=== PATIENT | male | born 1970 | race Caucasian/White ===

== ENCOUNTER 2019-11-25 06:40 | Day surgery (SDC) | payer BC ==
[~2019-11-25] VITALS: Ht 185.4 cm; Wt 139.9 kg
[2019-11-25] MEDS ORDERED: normal saline 1000ml 1,000 ML IV PRN (07:05)
[2019-11-25 07:30] VITALS: BP 136/79
[2019-11-25 07:42] LABS: BASOPHILS # (AUTO) 0.1 X10'3 (0-0.2); EOSINOPHILS # (AUTO) 0.1 X10'3 (0-0.9); HEMOGLOBIN 8.7 g/dl (14.0-17.9); MEAN PLATELET VOLUME 8.9 FL (7.4-10.4); MONOCYTES # (AUTO) 0.4 X10'3 (0-0.9); NEUTROPHILS # (AUTO) 1.6 X10'3 (1.8-7.7); WHITE BLOOD COUNT 2.7 X10'3 (4.5-11.0)
[2019-11-25] MEDS ORDERED: ALBU6.7H9 INH (07:42)
[2019-11-25] MEDS ORDERED: SPIR25TA5 PO (07:42)
[2019-11-25] MEDS ORDERED: NADO40TA3 PO (07:42)
[2019-11-25] MEDS ORDERED: FERR324T PO (07:42)
[2019-11-25] MEDS ORDERED: METO25TA6 PO (07:42)
[2019-11-25 07:43] LABS: BASOPHILS % (AUTO) 1.8 % (0-1); EOSINOPHILS % (AUTO) 2.2 % (0-6); HEMATOCRIT 28.4 % (42.0-52.0); LYMPHOCYTES # (AUTO) 0.7 X10'3 (1.1-4.8); LYMPHOCYTES % (AUTO) 24.1 % (21-51); MEAN CORPUSCULAR HEMOGLOBIN 23.5 PG (27.0-31.0); MEAN CORPUSCULAR HGB CONC 30.8 g/dL (33.0-36.5); MEAN CORPUSCULAR VOLUME 76.5 FL (78-98); MONOCYTES % (AUTO) 13.2 % (2-12); NEUTROPHILS % (AUTO) 58.7 % (42-75); PLATELET COUNT 89 X10'3 (140-440); RED BLOOD COUNT 3.72 X10'6 (4.70-6.10)
[2019-11-25 08:12] LABS: PLATELET ESTIMATE DECREASED
[2019-11-25 08:13] LABS: ANISOCYTOSIS 2+; HYPOCHROMASIA 1+; MICROCYTOSIS 1+
[2019-11-25] MEDS ORDERED: LIDOcaine 1%/PF 5ML 10 MG/ML VIAL ONE (08:26)
[2019-11-25] MEDS ORDERED: iohexol 300mg/ml 100ml inj. ONE (08:26)
[2019-11-25] MEDS ORDERED: fentaNYL/PF 50MCG/1 ML 2ML syringe ONE ×2 (08:26→09:11)
[2019-11-25] MEDS ORDERED: midazolam 2 mg/2 ml injection ONE ×4 (08:26→09:11)
[2019-11-25] MEDS ORDERED: heparin 1,000 UNITS/NS 500ml 500 ML ONE (08:26)
[2019-11-25 10:00] VITALS: BP 151/92
[2019-11-25 10:15] VITALS: BP 141/89
[2019-11-25 10:30] VITALS: BP 136/87
[2019-11-25 10:45] VITALS: BP 140/88
[2019-11-25 11:15] VITALS: BP 150/83
== END 2019-11-25 11:30 | disposition home or self-care (01) ==
LOC: SSTAY O 06:40
PROVIDERS: ATTEND Radiology Diagnostic Radiology
DX: K74.69 Other cirrhosis of liver (principal); K73.8 Other chronic hepatitis, not elsewhere classified; Z79.899 Other long term (current) drug therapy
CPT/HCPCS: 36415; 37200; 75889; 75970; 76937; 85025; 85610; 99152; 99153; C1769; C1894; C2625; J1644; J2250; J3010; J7030; Q9967; 85008; A6213

== ENCOUNTER 2024-12-04 12:46 | Emergency (ER) | payer BC ==
[~2024-12-04] VITALS: Ht 185.4 cm; Wt 130.0 kg
[~2024-12-04 12:46] MED LIST: ALBU6.7H14 INH; FERR324T PO; LOP25T PO; NADO40TA PO; SPIR25TA5 PO
--- NOTE | 2024-12-04 12:58 | Physician Documentation ---
History of Present Illness General Stated Complaint: IRREG HEART RATE Time Seen by MD: 12:57 History of Present Illness Initial Comments Patient is a 54-year-old male who states he started having an irregular rapid heart rate around 1:00 a.m. this morning. The patient states he has a similar episode proximally a month ago which was self-limited and resolved by itself. Patient states the symptoms of a rapid heart beat and palpitations have continued this morning and he presented to the emergency department. The patient's denying any active chest pain. Patient denies any shortness of breath. Patient denies any known cardiac issues. The patient denies any fevers chills nausea or vomiting.. The patient's symptoms are mild to moderate and persistent. Medication Reconciliation Allergies: Coded Allergies: Sulfa (Sulfonamide Antibiotics) (Verified Allergy, Unknown, 12/04/24) Scheduled Apixaban (Eliquis), 5 MG PO BID Ferrous Gluconate (Ferrous Gluconate), 1 TAB PO DAILY, (Reported) Metoprolol Tartrate* (Lopressor tablet*), 1 TAB PO DAILY, (Reported) Nadolol (Corgard), 1 TAB PO DAILY, (Reported) Spironolactone (Spironolactone), 1 TAB PO DAILY, (Reported) Scheduled PRN Albuterol Sulfate (Proventil Hfa), 1 PUFF INH PRN PRN for SOB or wheezing, (Reported) Review of Systems All Other Systems at this time: Reviewed and Negative Physical Exam Physical Exam Physical Exam VITALS: Reviewed and as above. GENERAL: Alert, no apparent distress. HEENT: Normocephalic, atraumatic, PERRL, EOMI, dry mucosa, no erythema RESPIRATORY: Lungs clear, normal breath sounds, no respiratory distress. CHEST: No accessory muscle use, no retractions CV: Tachycardic irregularly irregular, rhythm, no edema, no murmur, No: JVD GI: Soft, non-tender, bowels sounds present, no rebound, guarding, or rigidity BACK: No CVA tenderness, or swelling MUSCULOSKELETAL: No deformities, no edema SKIN: Warm and dry, no rash NEURO: Oriented x4, No motor or sensory deficit PSYCH: Normal mood and affect, no agitation Procedures Moderate Sedation : Pulmonary Assessment: Unremarkable Neurological Assessment: Unremarkable Cardiovascular Assessment: Unremarkable Other Systems: Unremarkable Medications: other (etomidate 20mg) ASA Class: I-normal healthy Mallampati Score/Visibility of: Class 1-full Staff Present: primary nurse, casting technician Monitoring: cardiac nurse specialist, NIPB, patient on oxygen via N/C, suction ready, crash cart at bedside Tolerated Procedure Well?: no Progress Results/Orders Results/Orders Orders - BARBY ZAPATA MD Chest,Single View (12/04/24 12:57) Saline Lock (12/04/24 12:57) Monitor (12/04/24 12:57) Completed Orders - BARBY ZAPATA MD Cbc/Diff (12/04/24 12:57) MG (12/04/24 12:57) Electrocardiogram (12/04/24 12:57) PBNP (12/04/24 12:57) Chest,Single View (12/04/24 12:57) BMP (12/04/24 12:57) Hs Troponin I W Calculations (12/04/24 12:57) Normal Saline 1000ml (0.9% Sodium Chlori (12/04/24 13:05) Diltiazem Iv (Cardizem Iv 5mg/Ml Inj.) (12/04/24 13:05) Man Diff (12/04/24 13:01) Potassium Cl Sr Tablet (K-Dur Tablet) (12/04/24 13:42) Etomidate Inj (Amidate Inj) (12/04/24 13:45) Procalcitonin (12/04/24 14:30) TSH (12/04/24 13:01) Hs Troponin I W Calculations (12/04/24 14:57) Vital Signs 12/04/24 12/04/24 12/04/24 12/04/24 12:56 13:02 13:07 13:12 Temp 98.4 98.4 Pulse 146 152 117 Resp 18 18 B/P (MAP) 116/88 116/88 116/88 (97) Pulse Ox 96 95 12/04/24 12/04/24 12/04/24 12/04/24 13:57 14:12 14:13 14:22 Temp 98.4 Pulse 111 114 80 78 Resp 16 26 24 14 B/P (MAP) 116/88 (97) 170/138 (149) 101/68 144/78 (100) Pulse Ox 96 98 98 97 O2 Delivery Nasal Cannula Nasal Cannula O2 Flow Rate 0 2.0 2.0 12/04/24 12/04/24 12/04/24 12/04/24 14:23 14:29 14:43 14:58 Pulse 75 70 70 74 Resp 9 10 20 11 B/P (MAP) 132/80 (97) 133/75 (94) Pulse Ox 98 97 97 97 O2 Delivery Nasal Cannula Nasal Cannula Room Air Room Air O2 Flow Rate 3.0 2.0 12/04/24 12/04/24 15:13 15:28 Pulse 72 75 Resp 9 12 B/P (MAP) 137/63 (87) 145/66 (92) Pulse Ox 97 97 O2 Delivery Room Air Room Air O2 Flow Rate 0 Laboratory Tests Test 12/04/24 13:01 12/04/24 15:09 White Blood Count 6.6 Red Blood Count 5.82 Hemoglobin 15.8 Hematocrit 46.8 Mean Corpuscular Volume 80.4 Mean Corpuscular Hemoglobin 27.2 Mean Corpuscular Hemoglobin Concent 33.8 Red Cell Distribution Width 15.2 H Platelet Count 87 L Mean Platelet Volume 8.4 Neutrophils (%) (Auto) 61.1 Lymphocytes (%) (Auto) 18.3 L Monocytes (%) (Auto) 17.7 H Eosinophils (%) (Auto) 2.1 Basophils (%) (Auto) 0.8 Neutrophils # (Auto) 4.0 Lymphocytes # (Auto) 1.2 Monocytes # (Auto) 1.2 H Eosinophils # (Auto) 0.1 Basophils # (Auto) 0.1 CBC Comment Differential Total Cells Counted 100 Neutrophils % (Manual) 55.0 Band Neutrophils % 9.0 Lymphocytes % (Manual) 18.0 L Monocytes % (Manual) 18.0 H Platelet Estimate Decreased Red Blood Cell Morphology Perf Poikilocytosis 1+ Basophilic Stippling Anisocytosis 1+ Sodium Level 139 Potassium Level 3.7 Chloride Level 106 Carbon Dioxide Level 23.6 L Anion Gap 9 Blood Urea Nitrogen 11 Creatinine 0.75 Estimated GFR/1.73 m2 > 90 BUN/Creatinine Ratio 14.7 Glucose Level 145 H Calcium Level 9.0 Magnesium Level 2.1 Troponin I High Sensitivity 20 17 Pro-B-Type Natriuretic Peptide 1026 H Albumin 3.8 Procalcitonin < 0.05 Thyroid Stimulating Hormone (TSH) 3.24 Chemistry Comments Troponin I High Sens Percent Delta 15 Troponin I Hi Sens Absolute Change -3 EKG/XRAY/CT/US/VASC/MRI Chest X-Ray : Additional Comments Patient: BREA LE Medical Record: [id number] [facility] : 1970, Age: 54 Sex: Male Location: ER Patient Status: REG ER Service Date/Time: 12/04/241256 Ordering Physician: BARBY ZAPATA MD Exam: CHEST,SINGLE VIEW CHEST RADIOGRAPH Indication: CP Technique: Single frontal view of the chest was obtained COMPARISON: None FINDINGS: Lines and Tubes: None Lungs: Clear Pleura: No effusion. No pneumothorax. Cardiomediastinal contours: Unremarkable Bones: Unremarkable IMPRESSION: 1. No acute disease. Electronically Signed by:VY GONZALEZ MD Date & Time: 12/04/241315 Dictated by: VY GONZALEZ MD Dictation date and time: 12/04/241315 Primary Care Provider: NO PRIMARY CARE PROVIDER cc: BARBY ZAPATA MD ~ Medical Decision Making Findings The patient's 12 lead EKG demonstrates an atrial fibrillation with a rapid ventricular rate of 144 with a normal axis the patient has nonspecific ST abnormalities the patient's EKG was interpreted by me at 12:53 p.m. p.m. as abnormal. The patient's cardiac nurse specialist was interpreted as atrial fibrillation at a rapid rate. The patient's pulse oximetry was interpreted by me as normal and adequate. The patient was given a dose of Cardizem and he had some reduction in his rapid rate. The patient was then consented for electrocardioversion. The patient was cardioverted with 200 joules of synchronous cardioversion. The patietn will be discharged on eliquis for 14 days and has been advised to follow up with cardiology as soon as possibel Procedural Sedation: Pre-assessment performed. See preceding complete history and physical for details. Time out performed. Technology Education Instructor, Continuous Pulse Ox. See sedation documentation for details. Medication(s): etomidate Complications: No hypoxic or apneic events Recovered without incident. Greater than 15 minutes of face to face time included in sedation and recovery. Cardioversion: Pre-assessment performed. See preceding complete history and physical for details. Time out performed. Technology Education Instructor, Continuous Pulse Ox. See sedation documentation for details. Technique: Biphasic Synchronized Cardioversion 200J: Converted Complications: No hypotensive events Critical Care: Time: 35 minutes Treatments/Evaluations: Close monitoring for dangerous arrhythmia and cardiovascular collapse, while treating with advance cardiac medications and techniques. Departure Time of Disposition: 15:12 Disposition: 01 HOME / SELF CARE / HOMELESS Impression: Primary Impression: Atrial fibrillation with rapid ventricular response Additional Impression: Thrombocytopenia Discharge Instructions: Atrial Fibrillation, [id number] Additional Instructions: Take the Eliquis for two weeks, return for worsening of your symptoms. Follow up with Dr. Junior as soon as you can. Referrals: NO PRIMARY CARE PROVIDER (PCP) Prescriptions Apixaban (ELIQUIS) 5 Mg Tablet 5 MG PO BID, #28 TAB Prov: BARBY ZAPATA MD 12/04/24 Critical Care Note Total Time (mins): 35 Critical Care Note The very real possibility of a deterioration of this patient's condition required the highest level of my preparedness for sudden, emergent intervention. I provided critical care services, which included medication orders, frequent reevaluations of the patient's condition and response to treatment, ordering and reviewing test results, and discussing the case with various consultants. Excludes time spent performing separately billable procedures. The critical care time associated with the care of the patient was 35 minutes. Signature Scribe Signature: no scribe Attestation: The note accurately reflects work and decisions made by me.Barby Zapata MD 12/06/24 10:19 BARBY ZAPATA MD Dec 04, 2024 12:58
[2024-12-04] MEDS: normal saline 1000ML IV soln IVB ONE (13:07)
[2024-12-04] MEDS: diltiazem 5mg/ml 5ml inj. IV ONE (13:07)
[2024-12-04 13:12] LABS: MEAN PLATELET VOLUME 8.4 FL (7.4-10.4); RED CELL DISTRIBUTION WIDTH 15.2 % (11.5-14.5)
--- NOTE | 2024-12-04 13:18 | RADIOLOGY REPORT ---
CHEST RADIOGRAPH Indication: CP Technique: Single frontal view of the chest was obtained COMPARISON: None FINDINGS: Lines and Tubes: None Lungs: Clear Pleura: No effusion. No pneumothorax. Cardiomediastinal contours: Unremarkable Bones: Unremarkable IMPRESSION: 1. No acute disease.
[2024-12-04 13:34] LABS: CREATININE 0.75 MG/DL (0.60-1.10); TOTAL CARBON DIOXIDE 23.6 MMOL/L (24-32); eCRCL 129 ML/MIN; eGFR > 90 ML/MIN
[2024-12-04 13:39] LABS: PRO BRAIN NATRIURETIC PEPTIDE 1026 PG/ML (0-125)
[2024-12-04 13:47] LABS: BANDS% (MANUAL) 9.0 % (0-10); LYMPHOCYTES % (MANUAL) 18.0 % (21-51); MONOCYTES % (MANUAL) 18.0 % (2-12); NEUTROPHILS % (MANUAL) 55.0 % (42-75); PLATELET ESTIMATE DECREASED
[2024-12-04] MEDS: potassium Cl 20 mEq SR tablet PO STA (13:55)
[2024-12-04 13:57] VITALS: TEMP 98.4
--- NOTE | 2024-12-04 14:17 | ELECTROCARDIOGRAPH REPORT ---
[facility] Test Date: 2024-12-04 Test Time: 12:49:55 Pat Name: BREA LE Department: EMERGENCY ROOM Room: Gender: M Butcher'S Assistant: PM : 1970 Requested By: BARBY MCCOY Order Number: [id number] Reading MD: Measurements Intervals [place] Rate: 144 P: 0 VA: 0 QRS: 16 QRSD: 78 T: 18 QT: 293 QTc: 454 Interpretive Statements Atrial fibrillation Ventricular premature complex Nonspecific repol abnormality, inferior leads Please click the below link to view image of tracing.
[2024-12-04] MEDS: etomidate 2mg/ml inj. IV ONE (14:32)
[2024-12-04] MEDS ORDERED: APIX5TAB3 PO (15:10)
[2024-12-04 15:28] VITALS: BP 145/66; PULSE 75; RESP 12; O2SAT 97
== END 2024-12-04 15:42 | disposition home or self-care (01) ==
LOC: ER 12:47
DX: I48.20 Chronic atrial fibrillation, unspecified (principal); D69.6 Thrombocytopenia, unspecified; R06.02 Shortness of breath; Z88.2 Allergy status to sulfonamides
CPT/HCPCS: 36415; 71045; 80048; 83735; 83880; 84145; 84443; 84484; 85025; 93005; 96361; 96374; 99285; J3490; J7030; 85007; 94760; A4620

== ENCOUNTER 2024-12-13 12:41 | Emergency (ER) | payer BC ==
[~2024-12-13] VITALS: Ht 188 cm; Wt 128.2 kg
[~2024-12-13 12:41] MED LIST changes: +APIX5TAB3 PO
--- NOTE | 2024-12-13 12:52 | Physician Documentation ---
History of Present Illness General Chief Complaint: Rapid Heartbeat Stated Complaint: AFIB Time Seen by MD: 12:52 OK to notify your PCP?: No Source: patient, RN notes reviewed, old records Mode of Arrival: POV Exam Limitations: no limitations History of Present Illness Initial Comments 54-year-old male, with a recent history of atrial fibrillation with RVR, returns to the ED complaining of rapid heart rate that began around 0800 this morning. Patient reports his watch stated he was in atrial fibrillation again. He attempted some at home vagal maneuvers without success. He denies any chest pain or shortness of breath. Patient was seen by myself nine days ago for similar symptoms and was found to be in atrial fibrillation with RVR. Patient was given Cardizem with rate reduction and then electrically cardioverted with 200 joules into normal sinus rhythm. Patient was discharged with prescription for Eliquis. Patient reports he had some initial issue getting Eliquis, but has had several doses in the last couple of days, and has more tablets home. He has since followed up with Dr. Junior, [employer], who ordered a stress test and echocardiogram but these have not been performed. Medication Reconciliation Allergies: Coded Allergies: Sulfa (Sulfonamide Antibiotics) (Verified Allergy, Unknown, 12/04/24) Scheduled Amiodarone Hcl (Cordarone), 1 TAB PO DAILY Apixaban (Eliquis), 5 MG PO BID Ferrous Gluconate (Ferrous Gluconate), 1 TAB PO DAILY, (Reported) Metoprolol Tartrate* (Lopressor tablet*), 1 TAB PO DAILY, (Reported) Nadolol (Corgard), 1 TAB PO DAILY, (Reported) Spironolactone (Spironolactone), 1 TAB PO DAILY, (Reported) Scheduled PRN Albuterol Sulfate (Proventil Hfa), 1 PUFF INH PRN PRN for SOB or wheezing, (Reported) Past Medical History Past Medical History: *CARDIOVASCULAR*, Atrial Fibrillation Past Surgical History: noncontributory Drug Use: none Lives In: Home Review of Systems All Other Systems at this time: Reviewed and Negative ROS As stated above in the HPI, otherwise all systems are reviewed and negative. Physical Exam Physical Exam Vital Signs: RN Vital Signs have been reviewed: Yes, Temperature: 97.3, Source: Oral, Heart Rate: 140, Respiratory Rate: 13, BP: 132/85, Pulse Oximetry: 99, Weight: 128.200 Oxygen Flow Rate: 0 Pulse Oximetry Reflects: adequate oxygenation Physical Exam VITALS: Reviewed and as above. GENERAL: Alert, no apparent distress. HEENT: Normocephalic, atraumatic, PERRL, EOMI, dry mucosa RESPIRATORY: Lungs clear, normal breath sounds, no respiratory distress. CHEST: No accessory muscle use, no retractions CV: Tachycardic, irregularly irregular rhythm, no edema, no murmur, No: JVD GI: Soft, non-tender, bowels sounds present, no rebound, guarding, or rigidity MUSCULOSKELETAL No deformities, no edema SKIN: Warm and dry, no rash NEURO: Oriented x4, No motor or sensory deficit PSYCH: Normal mood and affect, no agitation Procedures Cardioversion Cardioversion : Medications: Other (20mg etomidate) Joules: 200 Resulting Rhythm: NSR Tolerated Procedure Well?: yes, no complications Progress Progress Note 1315: Case discussed with MALTED MILK SUPERVISOR Prieto, cardiology, who agrees with plan of care. Results/Orders Reviewed/noted all lab results: Yes Results/Orders Orders - BARBY ZAPATA MD Chest,Single View (12/13/24 12:47) Monitor (12/13/24 12:47) Saline Lock (12/13/24 12:47) Oxygen (12/13/24 12:47) Completed Orders - BARBY ZAPATA MD Chest,Single View (12/13/24 12:47) Cbc/Diff (12/13/24 12:47) BMP (12/13/24 12:47) PBNP (12/13/24 12:47) Electrocardiogram (12/13/24 12:47) Hs Troponin I W Calculations (12/13/24 15:47) Diltiazem Iv (Cardizem Iv 5mg/Ml Inj.) (12/13/24 13:15) Amiodarone 150mg/Dext, Iso-Os (Nexterone (12/13/24 13:20) Add On Test (12/13/24 13:38) Etomidate Inj (Amidate Inj) (12/13/24 13:50) Hgb A1c (12/13/24 12:48) Ondansetron Inj. (Zofran 4mg/2ml Vial) (12/13/24 14:15) Vital Signs 12/13/24 12/13/24 12/13/24 12/13/24 12:43 13:09 13:11 13:16 Temp 97.3 98.9 Pulse 140 169 164 Resp 13 18 12 B/P (MAP) 132/85 133/93 (106) 133/93 Pulse Ox 99 94 O2 Flow Rate 0 0 12/13/24 12/13/24 12/13/24 12/13/24 13:30 13:57 14:02 14:05 Temp 98.9 Pulse 116 67 71 68 Resp 13 37 28 12 B/P (MAP) 134/82 (99) 152/103 (119) 144/73 (96) Pulse Ox 94 94 94 96 O2 Delivery Nasal Cannula Nasal Cannula Nasal Cannula O2 Flow Rate 0 5.0 5.0 3.0 12/13/24 12/13/24 12/13/24 12/13/24 14:05 14:06 14:09 14:18 Temp 98.9 Pulse 70 68 70 Resp 18 12 16 B/P (MAP) 126/76 (93) 119/65 (83) Pulse Ox 97 96 95 94 O2 Delivery Nasal Cannula Nasal Cannula* Nasal Cannula O2 Flow Rate 3.0 3 3.0 3.0 FiO2 N/A 12/13/24 12/13/24 12/13/24 14:20 14:22 14:59 Temp 98.9 98.9 Pulse 66 66 64 Resp 16 16 14 B/P (MAP) 115/68 (84) 115/68 (84) 104/64 Pulse Ox 95 95 94 O2 Delivery Nasal Cannula O2 Flow Rate 0 0 Laboratory Tests Test 12/13/24 12:48 White Blood Count 6.6 Red Blood Count 6.25 H Hemoglobin 16.9 Hematocrit 50.3 Mean Corpuscular Volume 80.6 Mean Corpuscular Hemoglobin 27.0 Mean Corpuscular Hemoglobin Concent 33.5 Red Cell Distribution Width 14.9 H Platelet Count 139 L Mean Platelet Volume 8.3 Neutrophils (%) (Auto) 69.2 Lymphocytes (%) (Auto) 19.6 L Monocytes (%) (Auto) 9.0 Eosinophils (%) (Auto) 1.9 Basophils (%) (Auto) 0.3 Neutrophils # (Auto) 4.6 Lymphocytes # (Auto) 1.3 Monocytes # (Auto) 0.6 Eosinophils # (Auto) 0.1 Basophils # (Auto) 0.0 CBC Comment Sodium Level 140 Potassium Level 4.2 Chloride Level 105 Carbon Dioxide Level 26.7 Anion Gap 8 Blood Urea Nitrogen 10 Creatinine 0.80 Estimated GFR/1.73 m2 > 90 BUN/Creatinine Ratio 12.5 Glucose Level 163 H Hemoglobin A1c 6.4 H Calcium Level 8.8 Troponin I High Sensitivity 18 Pro-B-Type Natriuretic Peptide 212 H Albumin 3.9 Chemistry Comments EKG/XRAY/CT/US/VASC/MRI EKG : Additional Comment 1247: EKG interpreted by myself to show atrial fibrillation with RVR at a rate of 167bpm. Minimal ST depression in I, II, and V3-V5. No reciprocal changes. No STEMI. Chest X-Ray : Additional Comments DI CHEST,SINGLE VIEW, HISTORY: CP COMPARISON: DI CHEST,SINGLE VIEW on DOS: 12/04/24 DI CHEST,SINGLE VIEW on DOS: 12/04/24 TECHNICAL DATA: 1 view of the chest was obtained. FINDINGS: Lines and tubes: None Cardiomediastinal silhouette: normal Pulmonary vasculature: prominent Lung expansion: normal Lung airspace: normal Lung interstitium: normal Pleura: normal Pneumothorax: no Bones: Unremarkable Other: no IMPRESSION: No acute intrathoracic abnormality. Reviewed by myself. Medical Decision Making Additional information obtaine: old records (seen by myself for similar 9 days ago and electrically cardioverted) Findings 1247: EKG interpreted by myself to show atrial fibrillation with RVR at a rate of 167bpm. Minimal ST depression in I, II, and V3-V5. No reciprocal changes. No STEMI. 1 view chest x-ray interpreted by myself to show no infiltrates, no pneumothorax, normal cardiac silhouette, normal bones. Patient is a 54-year-old male with a history of AFib in the past who was shocked on the 04 of December and he had recurrence today of his atrial fibrillation, the case was discussed with the cardiology nurse practitioner who advised starting the patient on amiodarone the patient was then cardioverted sharpe ccessfully in the emergency department two and a sinus rhythm the place was loaded on amiodarone and will be discharged on amiodarone. Previous hospitalizations were reviewed the patient is pulse oximetry was interpreted as normal and adequate in his pest controller assistant was interpreted as atrial fibrillation. Differential Diagnosis Atrial fibrillation pulmonary embolism myocardial infarction Departure Disposition: HOME / SELF CARE / HOMELESS Impression: Primary Impression: Atrial fibrillation with RVR Condition: Stable Discharge Instructions: Atrial Fibrillation, [id number] Additional Instructions: Take amiodarone as prescribed. Continue taking Eliquis as previously prescribed. Follow up with cardiology. Return to the ER for return if symptoms, or any other concerns. Prescriptions Amiodarone Hcl (Cordarone) 200 Mg Tablet 1 TAB PO DAILY for 30 Days, #42 TAB 1 by mouth twice daily for 2 weeks then once a day after that Prov: BARBY ZAPATA MD 12/13/24 Education Educated: Patient Educated regarding: diagnosis, treatment, need for follow up Critical Care Note Total Time (mins): 35 Critical Care Note The very real possibility of a deterioration of this patient's condition required the highest level of my preparedness for sudden, emergent intervention. I provided critical care services, which included medication orders, frequent reevaluations of the patient's condition and response to treatment, ordering and reviewing test results, and discussing the case with various consultants. Excludes time spent performing separately billable procedures. The critical care time associated with the care of the patient was 35 minutes. Signature Scribe Signature: Scribed for Barby Zapata MD by Gareth Renae . 12/13/24 13:10 Attestation: The note accurately reflects work and decisions made by me.Barby Zapata MD 12/15/24 14:16 BARBY ZAPATA MD Dec 13, 2024 12:52 GARETH MANJARREZ Dec 13, 2024 13:16
--- NOTE | 2024-12-13 12:53 | ELECTROCARDIOGRAPH REPORT ---
[facility] Test Date: 2024-12-13 Test Time: 12:47:31 Pat Name: BREA LE Department: EMERGENCY ROOM Room: Gender: M Plastic Surgeon: FILIPE : 1970 Requested By: BARBY MCCOY Order Number: [id number] Reading MD: Dr. Randy Borjas Measurements Intervals [place] Rate: 167 P: 0 MA: 0 QRS: 53 QRSD: 106 T: -3 QT: 239 QTc: 399 Interpretive Statements Atrial fibrillation with rapid V-rate ST depression, probably rate related Baseline wander in lead(s) V3,V4 Electronically Signed On 12-17-2024 7:42:[address] Randy Borjas Please click the below link to view image of tracing.
[2024-12-13 13:01] LABS: MEAN PLATELET VOLUME 8.3 FL (7.4-10.4); RED CELL DISTRIBUTION WIDTH 14.9 % (11.5-14.5)
[2024-12-13] MEDS: diltiazem 5mg/ml 5ml inj. IV ONE (13:16)
[2024-12-13] MEDS: amiodarone 150mg/dext, iso-os 100 ML IV ONE (13:24)
--- NOTE | 2024-12-13 13:25 | RADIOLOGY REPORT ---
DI CHEST,SINGLE VIEW, HISTORY: CP COMPARISON: DI CHEST,SINGLE VIEW on DOS: 12/04/24 DI CHEST,SINGLE VIEW on DOS: 12/04/24 TECHNICAL DATA: 1 view of the chest was obtained. FINDINGS: Lines and tubes: None Cardiomediastinal silhouette: normal Pulmonary vasculature: prominent Lung expansion: normal Lung airspace: normal Lung interstitium: normal Pleura: normal Pneumothorax: no Bones: Unremarkable Other: no IMPRESSION: No acute intrathoracic abnormality.
[2024-12-13 13:34] LABS: CREATININE 0.80 MG/DL (0.60-1.10); PRO BRAIN NATRIURETIC PEPTIDE 212 PG/ML (0-125); TOTAL CARBON DIOXIDE 26.7 MMOL/L (24-32); eCRCL 124 ML/MIN; eGFR > 90 ML/MIN
[2024-12-13] MEDS ORDERED: AMIO200T76 PO (13:52)
[2024-12-13] MEDS: etomidate 2mg/ml inj. IV ONE (13:56)
[2024-12-13] MEDS: ondansetron/PF 4mg/2ml inj IV ONE (14:16)
[2024-12-13 14:59] VITALS: BP 104/64; PULSE 64; RESP 14; TEMP 98.9; O2SAT 94
== END 2024-12-13 15:00 | disposition home or self-care (01) ==
LOC: ER 12:41
DX: I48.20 Chronic atrial fibrillation, unspecified (principal); Z79.01 Long term (current) use of anticoagulants; Z88.2 Allergy status to sulfonamides; Z79.899 Other long term (current) drug therapy
CPT/HCPCS: 36415; 71045; 80048; 83036; 83880; 84484; 85025; 92960; 93005; 96374; 96375; 99291; J0282; J2405; J3490; 94760; 99285; A4620

== ENCOUNTER 2024-12-16 02:58 | Inpatient (IN) | payer BC ==
[2024-12-16] VITALS (10 sets, daily range): BP systolic 109–137; BP diastolic 54–80; PULSE 53–68; RESP 12–18; TEMP 97.5–98.2; O2SAT 95–98
[~2024-12-16] VITALS: Ht 185.4 cm; Wt 132.0 kg
[~2024-12-16 02:58] MED LIST changes: +AMIO200T76 PO
--- NOTE | 2024-12-16 03:09 | Physician Documentation ---
History of Present Illness ~ Stated Complaint: POSS AFIB Time Seen by MD: 03:03 Primary Medical Doctor: NONE HPI Patient presents to the emergency room in atrial fibrillation. This is his 3rd time here that has month. He was started on amiodarone reports taking two doses but he woke up this morning feeling his heart pounding in knew he is in atrial fibrillation. He is on anticoagulation. He has yet to get his echo and stress test scheduled by wood flooring specialist Medication Reconciliation Allergies: Coded Allergies: Sulfa (Sulfonamide Antibiotics) (Verified Allergy, Unknown, 12/04/24) gluten (Verified Allergy, Unknown, 12/16/24) Scheduled Amiodarone Hcl (Cordarone), 1 TAB PO DAILY Apixaban (Eliquis), 5 MG PO BID Cetirizine HCl (Zyrtec), 1 TAB PO DAILY, (Reported) Cholecalciferol (Vitamin D), 4 TAB PO DAILY, (Reported) Multivitamin (Multi Vitamin Daily), 1 TAB PO DAILY, (Reported) Nadolol (Nadolol), 1 TAB PO DAILY, (Reported) Spironolactone (Spironolactone), 1 TAB PO DAILY, (Reported) Scheduled PRN Albuterol Sulfate (Proventil Hfa), 1 PUFF INH PRN PRN for SOB or wheezing, (Reported) Miscellaneous Medications Milk Thistle Seed Extract (Milk Thistle Seed Extract), (Reported) Milk Thistle Seed Extract (Milk Thistle Seed Extract), 1,000 MG, (Reported) Discontinued Medications Ferrous Gluconate (Ferrous Gluconate), 1 TAB PO DAILY, (Reported) Discontinued Reason: patient no longer taking Metoprolol Tartrate* (Lopressor tablet*), 1 TAB PO DAILY, (Reported) Discontinued Reason: patient no longer taking Nadolol (Corgard), 1 TAB PO DAILY, (Reported) Discontinued Reason: patient no longer taking Past Medical History Past Medical History: *CARDIOVASCULAR*, Atrial Fibrillation Past Surgical History: noncontributory Patient History: FH: renal cell carcinoma Drug Use: none Lives In: Home Review of Systems ROS All review of systems negative except as per HPI Physical Exam Physical Exam General: Patient is awake, alert, oriented x4 in no acute distress and well appearing.~ Head: Normocephalic and atraumatic. Eyes: Conjunctival normal. EOMI. PERRL. ENT: Mucous membranes moist. Neck: Supple, trachea is midline. Chest: Clear to auscultation bilaterally without rales, rhonchi, or wheezes. There is no accessory muscle use or retractions. Cardiac: Tachycardic and regular without murmurs, gallops, or rubs. Abd: Soft, nondistended, nontender, with normoactive bowel sounds. No guarding, rebound, or rigidity. Extremities: Normal strength. Normal range of motion. No deformities or edema. Back: No midline spinal or CVA tenderness. Skin: Warm and dry with no significant rash appreciated. Neuro: Cranial nerves II-XII grossly intact. No focal neuro deficits. Patient ambulating without difficulty. Progress Results/Orders Results/Orders Orders - DHIRAJ DODSON MD Chest,Single View (12/16/24 03:30) Monitor (12/16/24 03:11) Saline Lock (12/16/24 03:11) Oxygen (12/16/24 03:11) Cbc/Diff (12/16/24 03:11) Hs Troponin I W Calculations (12/16/24 05:11) Hs Troponin I W Calculations (12/16/24 06:11) Diltiazem-Ns 100mg/100ml (Cardizem-Ns 10 (12/16/24 03:15) Completed Orders - DHIRAJ DODOSN MD Chest,Single View (12/16/24 03:30) BMP (12/16/24 03:11) PBNP (12/16/24 03:11) Electrocardiogram (12/16/24 03:11) Hs Troponin I W Calculations (12/16/24 03:11) Diltiazem Iv (Cardizem Iv 5mg/Ml Inj.) (12/16/24 03:15) Medications Received in ER Medications (Trade) Dose Ordered Sig/Fahad Route PRN Reason Start Time Stop Time Status Last Admin Dose Admin (Cardizem IV 5mg/ ml inj.) 10 mg ONCE ONCE IV 12/16/24 03:15 12/16/24 03:31 DC 12/16/24 03:41 10 MG Diltiazem HCl 100 ml @ 5 mls/hr Q20H IV 12/16/24 03:15 12/16/24 03:41 5 MLS/HR Vital Signs 12/16/24 12/16/24 12/16/24 12/16/24 03:06 03:41 03:41 03:47 Temp 98.2 Pulse 157 130 131 Resp 16 16 B/P (MAP) 138/84 134/89 134/89 Pulse Ox 97 12/16/24 03:54 Pulse 107 Resp 18 B/P (MAP) 134/89 (104) Pulse Ox 95 O2 Flow Rate 0 Laboratory Tests Test 12/16/24 03:33 CBC Comment Sodium Level 139 Potassium Level 3.9 Chloride Level 106 Carbon Dioxide Level 23.9 L Anion Gap 9 Blood Urea Nitrogen 14 Creatinine 0.68 Estimated GFR/1.73 m2 > 90 BUN/Creatinine Ratio 20.6 H Glucose Level 196 H Calcium Level 8.9 Troponin I High Sensitivity 12 Troponin I High Sens Percent Delta 33 Troponin I Hi Sens Absolute Change -6 Pro-B-Type Natriuretic Peptide 50 Albumin 3.5 Chemistry Comments EKG/XRAY/CT/US/VASC/MRI EKG : Additional Comment EKG interpreted by myself shows time of 0305, rate 145, atrial fibrillation, normal axis, no ST changes Chest X-Ray : Additional Comments Exam: CHEST,SINGLE VIEW CHEST RADIOGRAPH Indication: CP Technique: Single frontal view of the chest was obtained COMPARISON: DI CHEST,SINGLE VIEW on DOS: 12/13/24, DI CHEST,SINGLE VIEW on DOS: 12/04/24 FINDINGS: Lines and Tubes: None Lungs: Clear Pleura: No effusion. No pneumothorax. Cardiomediastinal contours: Unremarkable Bones: Unremarkable IMPRESSION: 1. No acute disease. Medical Decision Making Additional information obtaine: old records Findings Patient presented to the emergency room with palpitations. Differentials include but are not limited to SVT, V-tach, ACS, atrial fibrillation therefore emergent labs ordered which were reassuring. Cardizem drip initiated. He continues to be in AFib RVR. Patient is declining cardioversion would prefer to be admitted as the last few weeks have not worked Differential Dx:Considerations: Include: atrial flutter Differential Dx:Considerations: Include electrolyte disorder Departure Admitted to Inpatient Unit: yes, to hospitalist Impression: Primary Impression: Atrial fibrillation with RVR Condition: Guarded Referrals: NO PRIMARY CARE PROVIDER (PCP) Signature Scribe Signature: No scribe Attestation: The note accurately reflects work and decisions made by me.Dhiraj Dodson MD 12/16/24 04:13 DHIRAJ DODSON MD Dec 16, 2024 03:09
--- NOTE | 2024-12-16 03:12 | ELECTROCARDIOGRAPH REPORT ---
[facility] Test Date: 2024-12-16 Test Time: 03:05:28 Pat Name: BREA LE Department: EMERGENCY ROOM Room: [place] [address] Gender: M Manager Wellness: RAFAELA : 1970 Requested By: LYNDSAY REBOLLAR Order Number: [id number] Reading MD: Dr. Randy Borjas Measurements Intervals [place] Rate: 145 P: 0 AL: 0 QRS: 30 QRSD: 89 T: 70 QT: 309 QTc: 480 Interpretive Statements Atrial fibrillation Minimal ST depression, diffuse leads Borderline prolonged QT interval Electronically Signed On 12-17-2024 7:40:[address] Randy Borjas Please click the below link to view image of tracing.
[2024-12-16] MEDS: diltiazem-NS 100mg/100ml 100 ML IV SCH (03:41)
[2024-12-16] MEDS: diltiazem 5mg/ml 5ml inj. IV ONE (03:41)
--- NOTE | 2024-12-16 03:49 | RADIOLOGY REPORT ---
CHEST RADIOGRAPH Indication: CP Technique: Single frontal view of the chest was obtained COMPARISON: DI CHEST,SINGLE VIEW on DOS: 12/13/24, DI CHEST,SINGLE VIEW on DOS: 12/04/24 FINDINGS: Lines and Tubes: None Lungs: Clear Pleura: No effusion. No pneumothorax. Cardiomediastinal contours: Unremarkable Bones: Unremarkable IMPRESSION: 1. No acute disease.
[2024-12-16 03:53] LABS: MEAN PLATELET VOLUME 8.0 FL (7.4-10.4); RED CELL DISTRIBUTION WIDTH 14.8 % (11.5-14.5)
[2024-12-16] MEDS ORDERED: NADO20TA33 PO (03:58)
[2024-12-16] MEDS ORDERED: MULT-1085 PO (04:02)
[2024-12-16] MEDS ORDERED: MILK250C (04:02)
[2024-12-16] MEDS ORDERED: CHOL20004 PO (04:02)
[2024-12-16] MEDS ORDERED: CETI-91 PO (04:02)
[2024-12-16 04:06] LABS: CREATININE 0.68 MG/DL (0.60-1.10); PRO BRAIN NATRIURETIC PEPTIDE 50 PG/ML (0-125); TOTAL CARBON DIOXIDE 23.9 MMOL/L (24-32); eCRCL 142 ML/MIN; eGFR > 90 ML/MIN
[2024-12-16] MEDS ORDERED: potassium Cl 40MEQ/1/2NS 520ml 520 ML IV PRN (05:05)
[2024-12-16] MEDS ORDERED: ondansetron/PF 4mg/2ml inj IV PRN (05:05)
[2024-12-16] MEDS ORDERED: mag hydrox/Alum hydrox/simeth 30ml oral suspension PO PRN (05:05)
[2024-12-16] MEDS ORDERED: magnesium Cl slow-release 64mg tablet PO PRN (05:05)
[2024-12-16] MEDS ORDERED: magnesium sulf-water 2g/50mL 50 ML IV PRN (05:05)
[2024-12-16] MEDS ORDERED: potassium Cl 20 mEq SR tablet PO PRN ×2 (05:05)
[2024-12-16] MEDS ORDERED: magnesium sulf-water 4G/100mL 100 ML IV PRN (05:05)
[2024-12-16] MEDS ORDERED: magnesium hydroxide 30ml (MOM) UD suspension PO PRN (05:05)
[2024-12-16] MEDS ORDERED: HYDROcodone/acetaminophen 5mg/325mg tablet PO PRN (05:05)
[2024-12-16] MEDS: PERFLUTREN PROTEIN-A MICROSPHR (Optison) 0.22 MG/ML 3ML VIAL IV ONE (05:14)
--- NOTE | 2024-12-16 05:23 | HISTORY AND PHYSICAL-Residence ---
History & Physical Providers to CC Resident Creating Document: GABY MCPHERSON, RES CC: TORREY YOUNG MD ~ History of Present Illness Primary Medical Doctor: NONE Reason for Admit\Complaint: Palpitations/AFib History of Present Illness 54-year-old male patient past medical history of atrial fibrillation, celiac disease, nonalcoholic steatohepatitis cirrhosis presented to the ED with chief complaints of palpitations. The patient's 3rd visit in the last two weeks. 12/04/2024 Initially visited ED on 04 of December, due to chief complaints of palpitation. Patient's heart rate was elevated and AFib with RVR of 144 was noted and patient was given a dose of Cardizem and had some reduction in his rapid rate, patient then consented for electrocardioversion and was cardioverted with 200 joules of synchronized cardioversion. He was discharged home with Eliquis for 14 days and was advised to follow up with cardiology Dr. Junior. Post discharge patient did get an appointment with cardiology nurse practitioner Natalie, initiated the patient on amiodarone 200 mg b.i.d. and Eliquis 5 mg b.i.d. patient was also scheduled for stress test and echocardiogram which were scheduled for end of December. 12/13/2024 Patient's 2nd visit to ED was on 13 of December with the same symptoms, during this visit patient was loaded with amiodarone and was c ardioverted successfully for the 2nd time and was sent home. Patient has been taking his Eliquis and amiodarone as prescribed. He has been taking Eliquis 5 mg b.i.d. his last dose was yesterday morning and recently started taking amiodarone 200 mg b.i.d. his first dose was yesterday This admission, patient presented with the same symptoms. Patient stated that he was sleeping comfortably and suddenly developed palpitations associated with mild diaphoresis. Denied any chest pain, shortness of breath. Patient's heart rate was in the 160s on arrival, patient was given 10 mg Cardizem IV once and started on a Cardizem drip currently at 5mg/hour. Troponins negative; EKG atrial fibrillation with RVR, and minimal ST segment depression in II,III and AVF(same findings as previous admissions) Patient has a history of nonalcoholic steatohepatitis cirrhosis, he was diagnosed with cirrhosis stage IV, post multiple episodes of emesis and was noted to have esophageal varices(underwent variceal banding), CT at that time showed cirrhosis, patient eventually underwent Trans's jugular liver biopsy by Dr.Danford Charlotte Montoya in 2019. Biopsy reported- CIRRHOSIS (STAGE 4) WITH MILD CHRONIC INFLAMMATION (GRADE 2). Patient does not have a history of alcohol consumption/hepatitis/diabetes Patient lives with his in his house Patient's primary care doctors from [facility] Patient's disk sharpener Dr. Junior Patient's heme oncologist is Dr.Piyush Malik, Dr. David Jimenez(liver transplant specialist from liver clinic in [facility]) Allergies: Coded Allergies: Sulfa (Sulfonamide Antibiotics) (Verified Allergy, Unknown, 12/04/24) gluten (Verified Allergy, Unknown, 12/16/24) Home Medications Home Medications Active Cordarone (Amiodarone HCl) 200 Mg Tablet 1 Tab PO DAILY 30 Days 1 by mouth twice daily for 2 weeks then once a day after that Eliquis (Apixaban) 5 Mg Tablet 5 Mg PO BID Reported Multi Vitamin Daily (Multivitamin) 1 Each Tablet 1 Tab PO DAILY 30 Days Milk Thistle Seed Extract 250 Mg Capsule 1,000 Mg Milk Thistle Seed Extract 250 Mg Capsule Zyrtec (Cetirizine HCl) 10 Mg Tablet 1 Tab PO DAILY 30 Days Vitamin D (Cholecalciferol) 2,000 Unit Tablet 4 Tab PO DAILY 30 Days Nadolol 20 Mg Tablet 1 Tab PO DAILY 30 Days Proventil Hfa (Albuterol Sulfate) 6.7 Gm Hfa.aer.ad 1 Puff INH PRN PRN Spironolactone 25 Mg Tablet 1 Tab PO DAILY Past Medical History Past Medical History Celiac disease Nonalcoholic fatty liver disease-cirrhosis Night terrors Past Surgical History Surgical History Comment Osteochondral Autograft Transfer System-right knee by Dr. Bass Esophageal variceal banding Family History Family History: FH: renal cell carcinoma Past Social History Social History Comment Patient denies any smoking/illicit drug use Patient used used to occasionally drink beer before he was diagnosed with nonalcoholic fatty liver disease but has quit completely post that Family history-patient's father had renal cell carcinoma, mother-multiple strokes Drug Use: None Lives In: Home ROS ROS Constitutional: No fever, dizziness, no weakness, no decrease in appetite HEENT: Normal vision. No sore throat, epistaxis, tinnitus Cardiovascular: No chest pain/discomfort, palpitations noted, no syncope. no pedal edema Respiratory: No sob, cough,hemoptysis Gastrointestinal: No abdominal pain, nausea, vomiting. No diarrhea, melena. Genitourinary: No frquency, urgency, incontinence, nocturia. No dysuria, hematuria Musculoskeletal: Normal, no pains Endocrine: No fatigue, polydipsia, polyuria. No heat or cold intolerance Neurologic: No headache, vertigo. No weakness, numbness or tingling of extremities Psychiatric: No hallucinations/delusions, no anhedonia, no suicidal ideation Hematologic: No bruises Exam Vitals: Vital Signs Date Time Temp Pulse Resp B/P (MAP) Pulse Ox O2 Delivery O2 Flow Rate FiO2 12/16/24 03:54 107 18 134/89 (104) 95 0 12/16/24 03:06 98.2 General: General: Awake, oriented to person, place and time HEENT: Conjunctive are pink, sclerae clear, no icterus, pupil is equal in both sides, reactive to light, no ear discharge, no pharyngeal erythema or an edema. Neck: Supple, no JVD, no lymphadenopathy and thyromegaly. Chest: Equal air entry on both lungs, no additional sounds no rhonchi no wheezing at the moment. Cardiovascular: S1-S2 heard irregular thythm and, irregular rate, no gallops, no rubs, no murmurs Abdomen: No visible peristalsis, Bowel sounds present on auscultation, soft, no tenderness, no guarding, no rigidity. Obese abdomen, hepatomegaly and splenomegaly noted,mild burn post last cardioversion Extremities: No obvious deformities, no pitting edema bilaterally, capillary refill intact, peripheral pulsations are intact on both sides. Right knee scar post oats procedure,small telangectasias noted on nose Neurologic: Mental status: alert and conscious, oriented to place, person and time, preserved memory, normal speech. Cranial nerves I-XII: Normal. Motor system: Preserved power, coordination, no evidenced involuntary movements, strength 5/5 in four extremities. 2+ deep tendon reflexes in biceps, triceps, quadriceps. Negative Babinski. Cerebellar: No nystagmus, dysdiadochokinesia, normal [id number]-[id number] testing. Musculoskeletal: No joint swelling, deformities, inflammations, and no scoliosis and back tenderness Skin: Warm and dry. Dry oral mucosa. Diagnostic Data Last Recorded Lab Results: 12/16/2433212/16/24332 Advance Care Planning Advanced Care plannin - 30 Minutes (Spent 17 minutes, discussing advanced care planning/resuscitative methods with the patient, patient decided he wanted to be full code) Additional Plan Persistent atrial fibrillation with RVR on Eliquis and amiodarone No identifiable trigger factors;patient gets palpitations only during his sleep EKG consistent with atrial fibrillation Recurrent episodes of atrial fibrillation in the last two weeks, has had two prior admissions in the ED(as mentioned in HPI) Patient has fluctuating heart rate between 80-140 beats/min Patient was given one dose of 10 mg Cardizem IV, and has been started on Cardizem drip currently at 5 milligram/hour Plan Continue Cardizem drip and titrate as needed Consult cardiology in the a.m. Ordered echocardiogram Ordered TSH Recommended getting a sleep study,as his possible INNA could be a cause of afib Celiac disease Patient was recently diagnosed with celiac disease in 2024 As per patient biopsy and antibody test was done which was consistent with celiac disease Patient does have symptoms of greasy stools,bloating post even minute intake of gluten Patient is currently on a high carb diet Nutrition consult in place Specified gluten allergy in diet Nonalcoholic steatohepatitis-cirrhosis, Patient does not have a history of diabetes, hepatitis, alcohol consumption Biopsy 2019: CIRRHOSIS (STAGE 4) WITH MILD CHRONIC INFLAMMATION (GRADE 2). Patient follows up with two specialists, Dr.Piyush Malik, Dr. David Jimenez(liver transplant specialist from liver clinic in [facility]) Patient gets endoscopy every year, alpha Fetoprotein markers have been negative up till now Patient's next appointment with Dr. Malik is in December Obesity Patient's BMI is 37.7 kg/meter squared Ordered HbA1c Possible INNA Recommended getting sleep study Allergies: Sulfa antibiotics, gluten Code Status: Full code DVT Prophylaxis: Heparin Lines/Tubes: PIV Nutrition: Strictly no gluten, nutrition consult in place PT:yes Prognosis: Guarded Disposition: Continue to monitor patient's rate, titrate Cardizem as needed. Consult Cardiology in a.m. Gaby Mcpherson MD Internal medicine resident,PGY-1 Plan reviewed with bedside team. Patient seen through remote audiovisual assessment through HIPAA compliant setup. All labs, flowsheets, and images reviewed Cumulative nonprocedural care time spent in directed patient care = 30 min Date of Service: Dec 16, 2024 Billing Provider: TORREY YONUG MD, JAHNAVI, RES Dec 16, 2024 05:23 TORREY YOUNG MD Dec 16, 2024 07:09
[2024-12-16 06:01] LABS: APTT 26 SECONDS (22-32); INR 1.1 INR
[2024-12-16 06:07] LABS: CHOL/HDL RATIO 2.9 (0.00-4.99); LDL CHOLESTEROL 63 MG/DL (50-100)
[2024-12-16 07:21] LABS: PHOSPHORUS 3.3 MG/DL (2.3-4.5); PRO BRAIN NATRIURETIC PEPTIDE 80.0 PG/ML (0-125)
[2024-12-16] MEDS: heparin, porcine 5000 units/ml vial SQ SCH (08:00)
[2024-12-16] MEDS: docusate sod 100mg capsule PO SCH (08:00)
[2024-12-16] MEDS: K and/or MAG REPLACEMENT MC SCH (08:00)
[2024-12-16] MEDS: diltiazem 30mg tablet PO SCH (09:44)
[2024-12-16] MEDS ORDERED: albuterol 2.5 MG/3 ML nebule NEB PRN (13:10)
--- NOTE | 2024-12-16 14:57 | CONSULTATION REPORT ---
History of Present Illness Providers to CC ~ Reason for Admit\Admit Dx: Cardiology consultation Refering MD: NONE History of Present Illness Patient with past medical history significant for non alcoholic idiopathic liver disease followed by Dr. Jimenez, celiac disease, recent diagnosis of atrial fibrillation. He states his symptoms dated back to November 17 when he woke up feeling like his heart was racing. He ended up going into work that day. Later went to follow up with his primary care provider who referred him to Dr. Junior's office. The next episode happened at work. 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 He went to a walk-in clinic who ultimately sent patient to the emergency department. He underwent synchronized cardioversion on December 04, 2024 for atrial fibrillation. He was discharged home without follow up and was able to [facility] on December 07, 2024. He was in sinus rhythm at that time. He then went back into atrial fibrillation on December 13 and presented again to the emergency department. Underwent cardioversion for a 2nd time. At this time he was also started on antiarrhythmic therapy with amiodarone. However, he took two doses and again went back into atrial fibrillation and presented to the emergency department. Ultimately admitted for further evaluation and management. His atrial fibrillation this admission was treated with diltiazem drip. He has spontaneously converted to normal sinus rhythm. When he is in atrial fibrillation he has a associated shortness for breath and dizziness. He states that his eight episodes of atrial fibrillation usually are precipitated by sleeping. He wakes up with a racing heart. History of night terrors. States since taking diltiazem he is dizzy when he stands up. Allergies: Coded Allergies: Sulfa (Sulfonamide Antibiotics) (Verified Allergy, Unknown, 12/04/24) gluten (Verified Allergy, Unknown, 12/16/24) Home Medications Home Medications Active Cordarone (Amiodarone HCl) 200 Mg Tablet 1 Tab PO DAILY 30 Days 1 by mouth twice daily for 2 weeks then once a day after that Eliquis (Apixaban) 5 Mg Tablet 5 Mg PO BID Reported Multi Vitamin Daily (Multivitamin) 1 Each Tablet 1 Tab PO DAILY 30 Days Milk Thistle Seed Extract 250 Mg Capsule 1,000 Mg Milk Thistle Seed Extract 250 Mg Capsule Zyrtec (Cetirizine HCl) 10 Mg Tablet 1 Tab PO DAILY 30 Days Vitamin D (Cholecalciferol) 2,000 Unit Tablet 4 Tab PO DAILY 30 Days Nadolol 20 Mg Tablet 1 Tab PO DAILY 30 Days Proventil Hfa (Albuterol Sulfate) 6.7 Gm Hfa.aer.ad 1 Puff INH PRN PRN Spironolactone 25 Mg Tablet 1 Tab PO DAILY Past Medical History Medical History Comment Cirrhosis with esophageal varices in the past New onset atrial fibrillation Night terrors Past Surgical History Surgical History Comment Orthopedic Esophageal varices banding Past Family History Family History: FH: renal cell carcinoma Past Social History Social History Comment Does not drink alcohol. Lifelong never smoker. No recreational drug use. Works as a respiratory therapist Physical Exam Last Vital Signs Recorded: RN Vital Signs have been reviewed: Yes, Temperature: 97.8, Source: Oral, Heart Rate: 61, Respiratory Rate: 16, BP: 132/80, Pulse Oximetry: 97, Weight: 132.000 Physical Exam General: Awake, alert, oriented. No apparent distress Respiratory: Lungs are clear to auscultation bilaterally. No respiratory distress. Chest: Normal shape and size. No accessory muscle use. Cardiovascular: Regular rate and rhythm. S1-S2. No murmur, gallop, rub. Extremities: No lower extremity edema, cyanosis or clubbing. Neurologic: Alert and oriented x4. Nonfocal Psychiatric: Normal mood and affect. Skin: Normal color. Warm and dry. Review of Systems ROS Review of systems negative except documented in HPI. Results EKG EKG Atrial fibrillation with rapid ventricular response Echocardiogram Echocardiogram Preliminary echocardiogram demonstrates preserved LVEF. Moderate LVH. RVSP estimated at 45 mm of mercury. Mild left atrial dilation Diagram Lab Result Diagram: 12/16/24 0333 12/16/24 0333 Assessment/Plan Additional Plan Patient presents secondary to palpitations with recent diagnosis of atrial fibrillation. The following is his problem list: Atrial fibrillation with rapid ventricular response Spontaneously converted to normal sinus rhythm --repeat ekg now that he is in sinus rhythm --start flecainide 50 mg b.i.d. --continue diltiazem --follow up in the office for EKG in one week --discussed ablation. Patient is hesitant at this time. Case discussed with Dr. Pooja Junior who is in agreement with this plan. Supervising MD Supervising Physician: CURTIS Ames NP Dec 16, 2024 14:57
--- NOTE | 2024-12-16 17:50 | ELECTROCARDIOGRAPH REPORT ---
[facility] Test Date: 2024-12-16 Test Time: 17:48:09 Pat Name: BREA LE Department: [facility] Room: [address] Gender: M Patrol Captain: : 1970 Requested By: CURTIS RIHCTER Order Number: [id number] Reading MD: Dr. ELLIE Weaver Measurements Intervals [place] Rate: 55 P: 16 FL: 129 QRS: 6 QRSD: 84 T: 2 QT: 452 QTc: 433 Interpretive Statements Sinus rhythm Left ventricular hypertrophy Electronically Signed On 12-17-2024 16:01:[address] ELLIE Weaver Please click the below link to view image of tracing.
--- NOTE | 2024-12-16 19:46 | CARDIOLOGY REPORT ---
APPROVED REPORT EXAM: Comprehensive 2D, Doppler, and color-flow Echocardiogram. Patient Location: [facility] Blood Pressure: 134/80 mmHg Heart Rate: 74 bpm Rhythm: NSR Indications Abnormal EKG S/P Cardioversion No fur feeder No previous echo 2D Dimensions LA Diam 4.5 cm IVSd 1.4 (0.7-1.1cm) LVDd 4.7 cm PWd 1.4 (0.7-1.1cm) IVSs 1.7 (0.8-1.2cm) LVDs 2.8 (2.5-4.0cm) Aortic Root(2D) 3.4 cm PWs 1.7 (0.8-1.2cm) LVOT Diameter 2.09 (1.8-2.4cm) LVEF(%) 70.8 (>50%) Ao Asc Diam. 3.14 cm IVC 20.26 mm FS (%) 40.1 % SV 71.4 ml CO 5.3 L/min M-Mode Dimensions MV EPSS 0.4 (<0.5cm) Aortic Valve AoV Peak Miky. 193.8 cm/s AoV VTI 37.0 cm AO Peak GR. 15.0 mmHg AO Mean GR. 7 mmHg LVOT VTI 38.11 cm LVOT Peak Miky. 181.6 cm/s LINCOLN(VTI)/BSA 3.51 cm2/m2 LINCOLN (VTI) 3.51 cm2 AV DI 1.03 % Mitral Valve MV E Velocity 111.1 cm/s MV Peak Gr. 8 mmHg MV DECEL TIME 248 ms MV A Velocity 57.0 cm/s MV PHT 72 ms E/A Ratio 1.9 MVA (PHT) 3.06 cm2 MV VMax 143.9 cm/s TDI Medial E' P. V 16.86 cm/s E/Medial E' 6.6 Tricuspid Valve TR P. Velocity 296 cm/s RAP ESTIMATE 10 mmHg TR Peak Gr. 35 mmHg RVSP 45 mmHg Pulmonary Vein S1 Velocity 79.1 cm/s D2 Velocity 66.9 cm/s PVa Velocity 31.1 cm/s PVa Duration 96 msec LEFT VENTRICLE LV is normal in size with moderate concentric hypertrophy. Overall systolic function appears normal. Overall LVEF is 70%. RIGHT VENTRICLE RV appears normal in size and function. RVSP is estimated at 45 mmHG. ATRIA Left atrium is mildly dilated. AORTIC VALVE Trileaflet AV appears sclerotic without stenosis. Trace insufficiency. MITRAL VALVE MV is thickened with mild annular thickening and no stenosis. Trace mitral regurgitation. TRICUSPID VALVE The tricuspid valve is normal in structure. Trace tricuspid regurgitation. PULMONIC VALVE The pulmonary valve is normal in structure. Trace pulmonic insufficiency. GREAT VESSELS The aortic root is normal in size. The ascending aorta is normal in size. The IVC is normal in size and collapses >50% with inspiration. PERICARDIUM There is no pericardial effusion. Other Information Study Quality: Adequate Conclusion Overall LVEF is 70%. LV is normal in size with moderate concentric hypertrophy. Overall systolic function appears normal. RV appears normal in size and function. RVSP is estimated at 45 mmHG. Trileaflet AV appears sclerotic without stenosis. Trace insufficiency. Trace mitral regurgitation. Trace tricuspid regurgitation. There is no pericardial effusion.
[2024-12-17 02:00] VITALS: BP 117/53; PULSE 50; RESP 16; TEMP 97.2; O2SAT 99
[2024-12-17 06:00] VITALS: BP 112/48; PULSE 60; RESP 18; TEMP 96.1; O2SAT 98
[2024-12-17 07:54] LABS: MEAN PLATELET VOLUME 8.8 FL (7.4-10.4); RED CELL DISTRIBUTION WIDTH 14.8 % (11.5-14.5)
[2024-12-17 08:00] VITALS: RESP 18; O2SAT 98
[2024-12-17 08:21] LABS: CREATININE 0.69 MG/DL (0.60-1.10); TOTAL CARBON DIOXIDE 25.6 MMOL/L (24-32); eCRCL 140 ML/MIN; eGFR > 90 ML/MIN
[2024-12-17] MEDS: multivitamins, therapeutics tablet PO SCH (08:32)
[2024-12-17] MEDS: cholecalciferol (vitamin D3) 1,000 unit (25mcg) tablet PO SCH (08:32)
[2024-12-17] MEDS: metoprolol succinate 25mg (24-HOUR) SR. Tablet PO SCH (08:33)
[2024-12-17] MEDS ORDERED: METO-395 PO (10:36)
[2024-12-17] MEDS ORDERED: TAM50T PO (10:36)
[2024-12-17 11:00] VITALS: BP 124/70; PULSE 60; RESP 16; TEMP 97.3; O2SAT 98
--- NOTE | 2024-12-17 12:39 | DISCHARGE SUMMARY-Residence ---
Discharge Summary Providers to CC Resident Creating Document: GOGO JIMENEZROSA LUIS, RES ~ Discharge Summary Admission Diagnosis: AFIB Hospital Course DATE OF ADMISSION: 12/16/2024 DATE OF DISCHARGE: 12/17/2024 Discharge Diagnosis\Comment: Atrial fibrillation with RVR. Celiac disease. Nonalcoholic steatohepatitis cirrhosis. Obesity. Possible obstructive sleep apnea. Operations\Procedures: None Consultants: Cardiology Complications: None Condition on DC: Stable New Medications: Flecainide Acetate (Tambocor) 50 Mg Tablet 50 MG PO Q12H for 30 Days, #60 TAB Metoprolol Succinate (Metoprolol Succinate) 25 Mg Tab.sr.24h 25 MG PO DAILY for 30 Days, #30 TAB.SR Continued Medications: Albuterol Sulfate (Proventil Hfa) 6.7 Gm Hfa.aer.ad 1 PUFF INH PRN PRN for SOB or wheezing Apixaban (Eliquis) 5 Mg Tablet 5 MG PO BID, #28 TAB Cetirizine HCl (Zyrtec) 10 Mg Tablet 1 TAB PO DAILY for allergy symptoms for 30 Days, #30 TAB 0 Refills Cholecalciferol (Vitamin D) 2,000 Unit Tablet 4 TAB PO DAILY for 30 Days, #30 TAB 0 Refills Milk Thistle Seed Extract (Milk Thistle Seed Extract) 250 Mg Capsule Milk Thistle Seed Extract (Milk Thistle Seed Extract) 250 Mg Capsule 1000 MG Multivitamin (Multi Vitamin Daily) 1 Each Tablet 1 TAB PO DAILY for 30 Days, #30 TAB 0 Refills Spironolactone (Spironolactone) 25 Mg Tablet 1 TAB PO DAILY Discontinued Medications: Amiodarone Hcl (Cordarone) 200 Mg Tablet 1 TAB PO DAILY for 30 Days, #42 TAB 1 by mouth twice daily for 2 weeks then once a day after that Nadolol (Nadolol) 20 Mg Tablet 1 TAB PO DAILY for 30 Days, #30 TAB 0 Refills Discharge Summary: HPI: 54-year-old male patient past medical history of atrial fibrillation, celiac disease, nonalcoholic steatohepatitis cirrhosis presented to the ED with chief complaints of palpitations. The patient's 3rd visit in the last two weeks. 12/04/2024 Initially visited ED on 04 of December, due to chief complaints of palpitation. Patient's heart rate was elevated and AFib with RVR of 144 was noted and patient was given a dose of Cardizem and had some reduction in his rapid rate, patient then consented for electrocardioversion and was cardioverted with 200 joules of synchronized cardioversion. He was discharged home with Eliquis for 14 days and was advised to follow up with cardiology Dr. Junior. Post discharge patient did get an appointment with cardiology nurse practitioner Natalie, initiated the patient on amiodarone 200 mg b.i.d. and Eliquis 5 mg b.i.d. patient was also scheduled for stress test and echocardiogram which were scheduled for end december. 12/13/2024 Patient's 2nd visit to ED was on 13 of December with the same symptoms, during this visit patient was loaded with amiodarone and was cardioverted successfully for the 2nd time and was sent home. Patient has been taking his Eliquis and amiodarone as prescribed. He has been taking Eliquis 5 mg b.i.d. his last dose was yesterday morning and recently started taking amiodarone 200 mg b.i.d. his first dose was yesterday This admission, patient presented with the same symptoms. Patient stated that he was sleeping comfortably and suddenly developed palpitations associated with mild diaphoresis. Denied any chest pain, shortness of breath. Patient's heart rate was in the 160s on arrival, patient was given 10 mg Cardizem IV once and started on a Cardizem drip currently at 5mg/hour. Troponins negative; EKG atrial fibrillation with RVR, and minimal ST segment depression in II,III and AVF(same findings as previous admissions) Patient has a history of nonalcoholic steatohepatitis cirrhosis, he was diagnosed with cirrhosis stage IV, post multiple episodes of emesis and was noted to have esophageal varices(underwent variceal banding), CT at that time showed cirrhosis, patient eventually underwent Trans's jugular liver biopsy by Dr.Danford Charlotte Montoya in 2019. Biopsy reported- CIRRHOSIS (STAGE 4) WITH MILD CHRONIC INFLAMMATION (GRADE 2). Patient does not have a history of alcohol consumption/hepatitis/diabetes Patient lives with his in his house Patient's primary care doctors from [facility] Patient's surgical elastic knitter Dr. Junior Patient's heme oncologist is Dr.Piyush Malik, Dr. David Jimenez(liver transplant specialist from liver clinic in [facility]) Hospital course: 54-year-old male presented to the hospital with chief complaint of palpitations. The patient was admitted with atrial fibrillation with RVR, initially the patient was treated with Cardizem drip, the patient was titrated. Heart rate was better controlled, transition to p.o. medication, started on metoprolol 25 mg daily. Cardiology was consulted who recommended to start flecainide, stop amiodarone which was recently started as an outpatient setting. Patient was continued on Eliquis 5 mg b.i.d., echocardiogram showed overall left ventricular ejection fraction of 70%, left ventricular is normal in size with moderate concentric hypertrophy. Overall systolic function is normal. RVSP is 45 mmHg. Explained to the patient the importance of follow-up with primary care physician and Cardiology in order to get sleep studies due to the suspicion of obstructive sleep apnea. Patient remained hemodynamically stable. The patient will be discharged home. Discharge course: The patient remained hemodynamically stable. The patient will be discharged with the following instructions: Come back to the emergency department or call 911 if severe chest pain, shortness of breath, palpitations is evidenced. Follow-up with your surgical elastic knitter within two weeks. Follow-up with your PCP within two weeks. Mentioned to him that you will require assessment for obstructive sleep apnea. Continue flecainide one tablet of 50 mg every 12 hours. Metoprolol one tablet of 25 mg daily. Strong recommendation for Lifestyle modification regarding your HbA1c which is close to diabetes. Physical exam: General: Awake, alert, oriented. No acute distress. Well-developed, hydrated and well-built nourished. No anemia, Jaundice or clubbing. HEENT: Conjunctive are pink, sclerae clear, no icterus, pupil is equal in both sides, reactive to light, no ear discharge, no pharyngeal erythema or an edema. Neck: Supple, no adenopathy, thyromegaly. Trachea is midline. No JVD. Chest: Respiratory: Vesicular breath sounds. No ronchi, crepitus or wheezing. Resonance is normal upon percussion of all lung iqbal. Cardiovascular: S1-S2 regular sinus rhythm and, regular rate, no gallops, no rubs, no murmurs Abdomen: No visible distention, Bowel sounds present on auscultation, on palp ation: soft, nontender, no guarding, no rigidity. Extremities: No obvious deformities, 1+ pedal edema, capillary refill intact, peripheral pulsations are intact on both sides Neurologic: Mental status: alert and conscious, oriented to place, person and time, preserved memory, normal speech. Cranial nerves I-XII: Normal. Motor system: Preserved power, coordination, no evidenced involuntary movements, strength 5/5 in four extremities. Sensory system: Preserved temperature, pain and vibration sensation. 2+ deep tendon reflexes in biceps, triceps, quadriceps. Negative Babinski. Cerebellar: No nystagmus, dysdiadochokinesia, normal [id number] testing. Skin: Warm and dry. Vital Signs Date Time Temp Pulse Resp B/P (MAP) Pulse Ox O2 Delivery O2 Flow Rate FiO2 12/17/24 11:00 97.3 60 16 124/70 (88) 98 Room Air 12/16/24 06:30 0 Laboratory Tests Test 12/16/24 03:03 12/16/24 03:33 12/16/24 04:30 12/16/24 05:40 Prothrombin Time 11.0 SECONDS INR International Normalized Ratio 1.1 INR Activated Partial Thromboplast Time 26 SECONDS Coagulation Comments Hemoglobin A1c 6.5 % White Blood Count 4.7 X10'3 Red Blood Count 5.58 X10'6 Hemoglobin 14.9 g/dl Hematocrit 44.4 % Mean Corpuscular Volume 79.7 FL Mean Corpuscular Hemoglobin 26.7 PG Mean Corpuscular Hemoglobin Concent 33.4 g/dL Red Cell Distribution Width 14.8 % Platelet Count 94 X10'3 Mean Platelet Volume 8.0 FL Neutrophils (%) (Auto) 63.8 % Lymphocytes (%) (Auto) 23.5 % Monocytes (%) (Auto) 9.6 % Eosinophils (%) (Auto) 2.5 % Basophils (%) (Auto) 0.6 % Neutrophils # (Auto) 3.0 X10'3 Lymphocytes # (Auto) 1.1 X10'3 Monocytes # (Auto) 0.4 X10'3 Eosinophils # (Auto) 0.1 X10'3 Basophils # (Auto) 0.0 X10'3 CBC Comment Sodium Level 139 MMOL/L Potassium Level 3.9 MMOL/L Chloride Level 106 MMOL/L Carbon Dioxide Level 23.9 MMOL/L Anion Gap 9 Blood Urea Nitrogen 14 MG/DL Creatinine 0.68 MG/DL Estimated GFR/1.73 m2 > 90 ML/MIN BUN/Creatinine Ratio 20.6 Glucose Level 196 MG/DL Calcium Level 8.9 MG/DL Troponin I High Sensitivity 12 ng/L 15 ng/L 17 ng/L Troponin I High Sens Percent Delta 33 % 25 % 13 % Troponin I Hi Sens Absolute Change -6 ng/L 3 ng/L 2 ng/L Pro-B-Type Natriuretic Peptide 50 PG/ML 80 PG/ML Albumin 3.5 G/DL Triglycerides Level 41 MG/DL Cholesterol Level 106 MG/DL LDL Cholesterol 63 MG/DL HDL Cholesterol 36 MG/DL Cholesterol/HDL Ratio 2.9 Chemistry Comments Phosphorus Level 3.3 MG/DL Magnesium Level 1.9 MG/DL Direct Bilirubin 0.3 MG/DL Thyroid Stimulating Hormone (TSH) 3.08 ulU/ml Test 12/17/24 06:40 White Blood Count 4.2 X10'3 Red Blood Count 4.99 X10'6 Hemoglobin 13.3 g/dl Hematocrit 40.1 % Mean Corpuscular Volume 80.4 FL Mean Corpuscular Hemoglobin 26.7 PG Mean Corpuscular Hemoglobin Concent 33.2 g/dL Red Cell Distribution Width 14.8 % Platelet Count 89 X10'3 Mean Platelet Volume 8.8 FL Neutrophils (%) (Auto) 58.3 % Lymphocytes (%) (Auto) 26.9 % Monocytes (%) (Auto) 11.8 % Eosinophils (%) (Auto) 2.6 % Basophils (%) (Auto) 0.4 % Neutrophils # (Auto) 2.4 X10'3 Lymphocytes # (Auto) 1.1 X10'3 Monocytes # (Auto) 0.5 X10'3 Eosinophils # (Auto) 0.1 X10'3 Basophils # (Auto) 0.0 X10'3 CBC Comment Sodium Level 139 MMOL/L Potassium Level 4.2 MMOL/L Chloride Level 107 MMOL/L Carbon Dioxide Level 25.6 MMOL/L Anion Gap 6 Blood Urea Nitrogen 12 MG/DL Creatinine 0.69 MG/DL Estimated GFR/1.73 m2 > 90 ML/MIN BUN/Creatinine Ratio 17.4 Glucose Level 162 MG/DL Calcium Level 8.5 MG/DL Total Bilirubin 1.1 MG/DL Aspartate Amino Transf (AST/SGOT) 22 U/L Alanine Aminotransferase (ALT/SGPT) 24 U/L Alkaline Phosphatase 63 IU/L Total Protein 6.3 G/DL Albumin 3.0 G/DL Globulin 3.3 G/DL Albumin/Globulin Ratio 0.9 Chemistry Comments Echocardiogram: Overall LVEF is 70%. LV is normal in size with moderate concentric hypertrophy. Overall systolic function appears normal. RV appears normal in size and function. RVSP is estimated at 45 mmHG. Trileaflet AV appears sclerotic without stenosis. Trace insufficiency. Trace mitral regurgitation. Trace tricuspid regurgitation. There is no pericardial effusion. Chest x-ray: No acute disease *Problems/Diagnosis: (1) Atrial fibrillation with rapid ventricular response Status: Acute Total Time Spent on D/C: > 30 Minutes Date of Service: Dec 17, 2024 Billing Provider: WILFRID YEN MD Common Visit Codes: 05320-TAX/OBS DISCH DAY >30min ROSA ALBRIGHT, RES Dec 17, 2024 12:38 WILFRID YEN MD Dec 18, 2024 07:41
== END 2024-12-17 12:28 | disposition home or self-care (01) | DRG 310 ==
LOC: ER 02:58 → ED HOLD 05:10 → PCU 3S 07:25
PROVIDERS: ADMIT Internal Medicine Critical Care Medicine; ATTEND Internal Medicine
DX: I48.19 Other persistent atrial fibrillation (principal); K74.60 Unspecified cirrhosis of liver; K90.0 Celiac disease; K75.81 Nonalcoholic steatohepatitis (NASH); G47.33 Obstructive sleep apnea (adult) (pediatric); E66.9 Obesity, unspecified; Z88.2 Allergy status to sulfonamides; Z68.37 Body mass index [BMI] 37.0-37.9, adult; Z80.51 Family history of malignant neoplasm of kidney
CPT/HCPCS: 36415; 71045; 80048; 80053; 80061; 82248; 83036; 83735; 83880; 84100; 84443; 84484; 85025; 85610; 85730; 87081; 93005; 93306; 99285; G0378; J3490